=== PATIENT | male | born 1980 | race Caucasian/White ===

== ENCOUNTER 2017-07-25 16:29 | Emergency (ER) | payer SELFPAY ==
[~2017-07-25] VITALS: Ht 185.4 cm; Wt 108.6 kg
[~2017-07-25 16:29] MED LIST: NOHOMEMEDS
[2017-07-25] MEDS ORDERED: CLEOCIN300 MG PO (18:06)
[2017-07-25] MEDS ORDERED: ULTRACET1 TABLET PO (18:06)
[2017-07-25 18:35] VITALS: BP 156/89
== END 2017-07-25 18:35 | disposition home or self-care (01) ==
LOC: EME 16:29
DX: K08.89 Other specified disorders of teeth and supporting structures (principal); K03.81 Cracked tooth; R22.0 Localized swelling, mass and lump, head; F17.200 Nicotine dependence, unspecified, uncomplicated; Z88.0 Allergy status to penicillin
CPT/HCPCS: 99281; 99284

== ENCOUNTER 2018-03-06 09:08 | Inpatient (IN) | payer SELFPAY ==
[~2018-03-06] VITALS: Ht 190.5 cm; Wt 111.3 kg
[~2018-03-06 09:08] MED LIST changes: +CLEOCIN300 MG PO; +ULTRACET1 TABLET PO
[2018-03-06 09:39] LABS: HEMATOCRIT 42.7 % (38.0-50.0); HEMOGLOBIN 13.7 G/DL (12.5-16.6); MCH 30.9 PG (29.0-34.0); MCHC 32.1 G/DL (30.0-36.0); MCV 96.2 FL (86-99); NRBC (%) 0.1 /100 WBC (0-0); PLATELET COUNT 312 K/uL (156-360); RBC DIS.WIDTH-CV 13.8 % (11.8-14.6); RBC DIS.WIDTH-SD 48.8 % (39-53); RED BLOOD COUNT 4.44 M/uL (4.00-5.50); WHITE BLOOD COUNT 24.4 K/uL (4.1-10.2)
[2018-03-06 09:50] LABS: AMYLASE 112 IU/L (1-118); CHLORIDE 102 mEq/L (99-109); POTASSIUM 5.5 mEq/L (3.7-5.4); SODIUM 137 mEq/L (136-147)
[2018-03-06 09:55] LABS: CREATININE 2.6 mg/dL (0.6-1.3); GFR ESTIMATE (CALCULATED) 30 mL/min/ (58.99-99999); SERUM ETHYL ALCOHOL < 10 mg/dL
[2018-03-06 09:56] LABS: UREA NITROGEN (BUN) 19 mg/dL (9-23)
[2018-03-06 09:59] LABS: LIPASE 117 U/L (1.0-51.0); TROP-I INTERPRETATION NEGATIVE; TROPONIN-I 0.05 ng/mL (0.0-0.30)
[2018-03-06 10:08] LABS: COMMENTS - BLOOD GASES A+C+; DEVICE VENT; FI02 100 %; MECHANICAL RATE 16 resp/min; MODE AC; SITE RR; TOTAL RESP RATE 16 resp/min
[2018-03-06 10:09] LABS: CARBOXY HGB 5.3 % (0-5); METHEMOGLOBIN 0.5 % (0-1.5); PCO2 87 mm Hg (35-45); PEEP 5 CM/H20; PO2 135 mm Hg (80-100); TIDAL VOLUME 500 ML; pH 6.91 (7.35-7.45)
[2018-03-06 10:14] LABS: APPEARANCE CLEAR ((CLEAR)); BILIRUBIN NEGATIVE; BLOOD NEGATIVE; COLOR YELLOW ((YELLOW)); GLUCOSE (STRIP) >=500; KETONES NEGATIVE; LEUKOCYTES NEGATIVE; NITRITE NEGATIVE; PROTEIN (STRIP) 30; SPECIFIC GRAVITY 1.017 (1.000-1.030); UCUL ADDED? NO; UROBILINOGEN 0.2 MG/DL (0.2-1.0)
[2018-03-06 10:17] LABS: GLUCOSE 519 mg/dL (70-99)
[2018-03-06 10:19] LABS: INTER. NORMALIZED RATIO 1.1
[2018-03-06 10:22] LABS: PTT 33.5 SEC (25-37)
[2018-03-06 10:31] LABS: AMPHETAMINE NEGATIVE (500 ng/mL); BARBITURATES NEGATIVE (200 ng/mL); BENZODIAZEPINES NEGATIVE (150 ng/mL); BUPRENORPHINE NEGATIVE (10 ng/mL); COCAINE NEGATIVE (150 ng/mL); METHADONE NEGATIVE (200 ng/mL); METHAMPHETAMINE NEGATIVE (500 ng/mL); OPIATES (MORPHINE) NEGATIVE (100 ng/mL); OXYCODONE NEGATIVE (100 ng/mL); PHENCYCLIDINE NEGATIVE (25 ng/mL); PROPOXYPHENE NEGATIVE (300 ng/mL); THC CANNABINOIDS NEGATIVE (50 ng/mL); TRICYCLIC ANTIDEPRESSANTS NEGATIVE (300 ng/mL)
[2018-03-06 10:41] LABS: ABS NEUTROPHIL COUNT 16.9; BAND NEUTROPHILS 2.7 % (0-8.0); BASOPHILS 0.9 %; EOSINOPHIL ABS CT 0; LYMPHOCYTES 19.1 % (15.0-45.0); METAMYELOCYTES 0.9 %; MONOCYTES 8.2 % (0-9.0); MYELOCYTES 1.8 %; PLAT.SUFFICIENCY ADEQUATE; SEG.NEUTROPHILS 66.4 % (46.0-76.0)
[2018-03-06 14:02] VITALS: BP 113/72
[2018-03-06 15:01] VITALS: BP 107/69
[2018-03-06 16:02] VITALS: BP 138/98
[2018-03-06 16:12] LABS: SITE A LINE
[2018-03-06 16:13] LABS: DEVICE VENT; FI02 80 %; MECHANICAL RATE 22 resp/min; MODE AC; PEEP 5 CM/H20; TIDAL VOLUME 500 ML; TOTAL RESP RATE 22 resp/min
[2018-03-06 16:14] LABS: pH 7.27 (7.35-7.45)
[2018-03-06 16:15] LABS: BASE EXCESS -3.8 mEq/L (-3 to +3); BICARBONATE 25.5 mEq/L (22-26); CARBOXY HGB 1.9 % (0-5); METHEMOGLOBIN 0.7 % (0-1.5); O2 SATURATION (CALCULATED) 99.1 % (95-99); PCO2 52 mm Hg (35-45); PO2 266 mm Hg (80-100)
[2018-03-06 16:48] LABS: CHLORIDE 110 MEQ/L (99-109); PHOSPHORUS 3.9 mg/dL (2.5-4.9); POTASSIUM 5.2 MEQ/L (3.7-5.4); UREA NITROGEN (BUN) 20 mg/dL (9-23)
[2018-03-06 16:49] LABS: TOTAL PROTEIN 6.8 g/dL (6.4-8.3)
[2018-03-06 16:51] LABS: TOTAL BILIRUBIN 0.4 mg/dL (0.0-1.0)
[2018-03-06 16:52] LABS: ALKALINE PHOSPHATASE 102 IU/L (3-129)
[2018-03-06 16:54] LABS: CREATININE 1.5 MG/DL (0.6-1.3); GFR ESTIMATE (CALCULATED) 57 mL/min/ (58.99-99999); GLUCOSE 131 mg/dL (70-99); SODIUM 144 MEQ/L (136-147)
[2018-03-06 16:55] LABS: ALT (GPT) 146 IU/L (3-49); AST (GOT) 107 IU/L (2-34); DIRECT BILIRUBIN 0.2 mg/dL (0.0-0.3)
[2018-03-06 17:02] VITALS: BP 93/65
[2018-03-06 17:26] LABS: DEVICE VENT; FI02 50 %; MECHANICAL RATE 21 resp/min; MODE A/C; PCO2 45 mm Hg (35-45); PEEP 5 CM/H20; PO2 105 mm Hg (80-100); SITE A LINE; TIDAL VOLUME 600 ML; TOTAL RESP RATE 21 resp/min; pH 7.31 (7.35-7.45)
[2018-03-06 17:27] LABS: BASE EXCESS -3.8 mEq/L (-3 to +3); BICARBONATE 24.1 mEq/L (22-26); CARBOXY HGB 1.9 % (0-5); METHEMOGLOBIN 0.7 % (0-1.5); O2 SATURATION (CALCULATED) 98.3 % (95-99)
[2018-03-06 18:03] VITALS: BP 100/46
[2018-03-06 18:18] LABS: CHLORIDE 112 MEQ/L (99-109); MAGNESIUM 1.9 mg/dl (1.3-2.7); POTASSIUM 5.6 MEQ/L (3.7-5.4); SODIUM 146 MEQ/L (136-147)
[2018-03-06 18:23] LABS: CREATININE 1.5 MG/DL (0.6-1.3); GFR ESTIMATE (CALCULATED) 57 mL/min/ (58.99-99999); GLUCOSE 138 mg/dL (70-99); UREA NITROGEN (BUN) 21 mg/dL (9-23)
[2018-03-06 18:24] LABS: INTER. NORMALIZED RATIO 1.1; PHOSPHORUS 2.5 mg/dL (2.5-4.9)
[2018-03-06 18:43] LABS: TROP-I INTERPRETATION POSITIVE; TROPONIN-I 1.17 ng/mL (0.0-0.30)
[2018-03-06 18:54] LABS: UR CREATININE CONCENTRATION 15.8 MG/DL
[2018-03-06 18:55] LABS: BASOPHIL (%) 0.4 % (0-1); BASOPHIL COUNT 0.1 K/uL (0-0.1); EOSINOPHIL (%) 0 % (0-5); HEMATOCRIT 44.4 % (38.0-50.0); HEMOGLOBIN 15.5 G/DL (12.5-16.6); IMMATURE GRANULOCYTE (%) 1.6 % (0.0-0.7); LYMPHOCYTE (%) 5.7 % (15-42); LYMPHOCYTE COUNT 1.2 K/uL (1.0-2.8); MCH 30.3 PG (29.0-34.0); MCHC 34.9 G/DL (30.0-36.0); MONOCYTE (%) 8.1 % (3-12); MONOCYTE COUNT 1.7 K/uL (0-0.8); NEUTROPHIL (%) 84.2 % (45-76); NEUTROPHIL COUNT 17.7 K/uL (1.8-6.4); PLATELET COUNT 291 K/uL (156-360); RBC DIS.WIDTH-CV 13.5 % (11.8-14.6); RBC DIS.WIDTH-SD 42.4 % (39-53); RED BLOOD COUNT 5.12 M/uL (4.00-5.50)
[2018-03-06 18:56] LABS: MCV 86.7 FL (86-99)
[2018-03-06 20:04] LABS: ALBUMIN 4.3 G/DL (3.2-4.8); ALKALINE PHOSPHATASE 87 IU/L (3-129); ALT (GPT) 162 IU/L (3-49); AST (GOT) 131 IU/L (2-34); DIRECT BILIRUBIN 0.1 mg/dL (0.0-0.3); TOTAL BILIRUBIN 0.5 MG/DL (0.0-1.0); TOTAL PROTEIN 7.1 G/DL (6.4-8.3)
[2018-03-06 20:26] LABS: CHLORIDE 114 MEQ/L (99-109); CREATININE 1.5 MG/DL (0.6-1.3); GFR ESTIMATE (CALCULATED) 57 mL/min/ (58.99-99999); GLUCOSE 145 mg/dL (70-99); PHOSPHORUS 2.4 mg/dL (2.5-4.9); POTASSIUM 5.6 MEQ/L (3.7-5.4); SODIUM 146 MEQ/L (136-147); UREA NITROGEN (BUN) 21 mg/dL (9-23)
[2018-03-07] VITALS (13 sets, daily range): BP systolic 78–111; BP diastolic 52–71
[2018-03-07 00:21] LABS: BASOPHIL (%) 0.5 % (0-1); BASOPHIL COUNT 0.1 K/uL (0-0.1); EOSINOPHIL (%) 0.1 % (0-5); HEMATOCRIT 45.3 % (38.0-50.0); HEMOGLOBIN 16.1 G/DL (12.5-16.6); IMMATURE GRANULOCYTE (%) 0.9 % (0.0-0.7); LYMPHOCYTE (%) 7.7 % (15-42); LYMPHOCYTE COUNT 1.5 K/uL (1.0-2.8); MCH 30.8 PG (29.0-34.0); MCHC 35.5 G/DL (30.0-36.0); MCV 86.6 FL (86-99); MONOCYTE (%) 7.5 % (3-12); MONOCYTE COUNT 1.5 K/uL (0-0.8); NEUTROPHIL (%) 83.3 % (45-76); NEUTROPHIL COUNT 16.2 K/uL (1.8-6.4); PLATELET COUNT 280 K/uL (156-360); RBC DIS.WIDTH-CV 13.7 % (11.8-14.6); RBC DIS.WIDTH-SD 42.3 % (39-53); RED BLOOD COUNT 5.23 M/uL (4.00-5.50); WHITE BLOOD COUNT 19.4 K/uL (4.1-10.2)
[2018-03-07 00:27] LABS: INTER. NORMALIZED RATIO 1.2
[2018-03-07 00:40] LABS: POTASSIUM 5.6 mEq/L (3.7-5.4); SODIUM 153 mEq/L (136-147)
[2018-03-07 00:41] LABS: MAGNESIUM 2.2 mg/dL (1.3-2.7); TROP-I INTERPRETATION POSITIVE
[2018-03-07 00:42] LABS: GLUCOSE 154 mg/dL (70-99)
[2018-03-07 00:46] LABS: CREATININE 1.5 mg/dL (0.6-1.3); GFR ESTIMATE (CALCULATED) 57 mL/min/ (58.99-99999)
[2018-03-07 00:47] LABS: UREA NITROGEN (BUN) 22 mg/dL (9-23)
[2018-03-07 00:51] LABS: CHLORIDE 120 mEq/L (99-109); PHOSPHORUS 1.3 mg/dL (2.5-4.9); TROPONIN-I 1.45 ng/mL (0.0-0.30)
[2018-03-07 05:51] LABS: SITE ALINE
[2018-03-07 05:52] LABS: COMMENTS - BLOOD GASES C+; DEVICE VENT; FI02 50 %; MECHANICAL RATE 21 resp/min; MODE AC; PCO2 41 mm Hg (35-45); PEEP 5 CM/H20; TIDAL VOLUME 600 ML; TOTAL RESP RATE 21 resp/min; pH 7.35 (7.35-7.45)
[2018-03-07 05:53] LABS: BASE EXCESS -2.9 mEq/L (-3 to +3); BICARBONATE 22.6 mEq/L (22-26); CARBOXY HGB 1.5 % (0-5); METHEMOGLOBIN 0.9 % (0-1.5); O2 SATURATION (CALCULATED) 97.1 % (95-99); PO2 85 mm Hg (80-100)
[2018-03-07 06:22] LABS: BASOPHIL (%) 0.4 % (0-1); BASOPHIL COUNT 0.1 K/uL (0-0.1); EOSINOPHIL (%) 0.2 % (0-5); HEMATOCRIT 45.9 % (38.0-50.0); HEMOGLOBIN 15.9 G/DL (12.5-16.6); IMMATURE GRANULOCYTE (%) 0.8 % (0.0-0.7); LYMPHOCYTE (%) 8.2 % (15-42); LYMPHOCYTE COUNT 1.3 K/uL (1.0-2.8); MCH 30.1 PG (29.0-34.0); MCHC 34.6 G/DL (30.0-36.0); MCV 86.9 FL (86-99); MONOCYTE (%) 6.4 % (3-12); NEUTROPHIL COUNT 13.5 K/uL (1.8-6.4); PLATELET COUNT 274 K/uL (156-360); RBC DIS.WIDTH-CV 13.8 % (11.8-14.6); RBC DIS.WIDTH-SD 43.2 % (39-53); RED BLOOD COUNT 5.28 M/uL (4.00-5.50); WHITE BLOOD COUNT 16.1 K/uL (4.1-10.2)
[2018-03-07 06:41] LABS: INTER. NORMALIZED RATIO 1.1
[2018-03-07 06:44] LABS: CHLORIDE 122 MEQ/L (99-109); CREATININE 1.4 MG/DL (0.6-1.3); GFR ESTIMATE (CALCULATED) > 59 mL/min/ (58.99-99999); GLUCOSE 145 mg/dL (70-99); SODIUM 153 MEQ/L (136-147); UREA NITROGEN (BUN) 23 mg/dL (9-23)
[2018-03-07 06:45] LABS: PHOSPHORUS 1.3 mg/dL (2.5-4.9); POTASSIUM 4.4 MEQ/L (3.7-5.4)
[2018-03-07 06:54] LABS: TROP-I INTERPRETATION POSITIVE; TROPONIN-I 1.83 ng/mL (0.0-0.30)
[2018-03-07 12:36] LABS: BASOPHIL (%) 0.5 % (0-1); BASOPHIL COUNT 0.1 K/uL (0-0.1); EOSINOPHIL (%) 0.6 % (0-5); EOSINOPHIL COUNT 0.1 K/uL (0-0.3); HEMATOCRIT 45.2 % (38.0-50.0); HEMOGLOBIN 15.7 G/DL (12.5-16.6); IMMATURE GRANULOCYTE (%) 0.5 % (0.0-0.7); LYMPHOCYTE (%) 6.9 % (15-42); MCH 30.7 PG (29.0-34.0); MCHC 34.7 G/DL (30.0-36.0); MCV 88.3 FL (86-99); MONOCYTE (%) 6.9 % (3-12); NEUTROPHIL (%) 84.6 % (45-76); NEUTROPHIL COUNT 11.7 K/uL (1.8-6.4); PLATELET COUNT 247 K/uL (156-360); RBC DIS.WIDTH-CV 14.3 % (11.8-14.6); RBC DIS.WIDTH-SD 45.2 % (39-53); RED BLOOD COUNT 5.12 M/uL (4.00-5.50); WHITE BLOOD COUNT 13.8 K/uL (4.1-10.2)
[2018-03-07 12:44] LABS: INTER. NORMALIZED RATIO 1.2
[2018-03-07 12:56] LABS: TROPONIN-I 1.29 ng/mL (0.0-0.30)
[2018-03-07 12:58] LABS: TROP-I INTERPRETATION POSITIVE
[2018-03-07 13:00] LABS: CHLORIDE 124 MEQ/L (99-109); CREATININE 1.4 MG/DL (0.6-1.3); GFR ESTIMATE (CALCULATED) > 59 mL/min/ (58.99-99999); GLUCOSE 132 mg/dL (70-99); SODIUM 154 MEQ/L (136-147); UREA NITROGEN (BUN) 26 mg/dL (9-23)
[2018-03-07 13:01] LABS: PHOSPHORUS < 1.0 mg/dL (2.5-4.9); POTASSIUM 3.2 MEQ/L (3.7-5.4)
[2018-03-07 17:02] LABS: COMMENTS - BLOOD GASES C+; DEVICE 840; FI02 50 %; MECHANICAL RATE 21 resp/min; MODE AC; O2 SATURATION (CALCULATED) 93.8 % (95-99); PCO2 45 mm Hg (35-45); PEEP 5 CM/H20; PO2 66 mm Hg (80-100); SITE ALINE; TIDAL VOLUME 600 ML; TOTAL RESP RATE 21 resp/min; pH 7.27 (7.35-7.45)
[2018-03-07 17:03] LABS: BASE EXCESS -6.2 mEq/L (-3 to +3); BICARBONATE 20.7 mEq/L (22-26); CARBOXY HGB 1.7 % (0-5); METHEMOGLOBIN 0.4 % (0-1.5)
[2018-03-07 18:04] LABS: COMMENTS - BLOOD GASES C+; DEVICE 840; FI02 50 %; MECHANICAL RATE 15 resp/min; MODE AC; O2 SATURATION (CALCULATED) 95.9 % (95-99); PCO2 45 mm Hg (35-45); PEEP 5 CM/H20; PO2 78 mm Hg (80-100); SITE ALINE; TIDAL VOLUME 730 ML; TOTAL RESP RATE 15 resp/min; pH 7.26 (7.35-7.45)
[2018-03-07 18:05] LABS: BASE EXCESS -6.8 mEq/L (-3 to +3); BICARBONATE 20.2 mEq/L (22-26); CARBOXY HGB 1.5 % (0-5); METHEMOGLOBIN 0.6 % (0-1.5)
[2018-03-07 18:32] LABS: COMMENTS - BLOOD GASES C+; DEVICE 840; FI02 50 %; MECHANICAL RATE 15 resp/min; MODE AC; O2 SATURATION (CALCULATED) 97.9 % (95-99); PCO2 45 mm Hg (35-45); PEEP 10 CM/H20; PO2 75 mm Hg (80-100); SITE ALINE; TIDAL VOLUME 730 ML; TOTAL RESP RATE 15 resp/min; pH 7.25 (7.35-7.45)
[2018-03-07 18:33] LABS: BASE EXCESS -7.4 mEq/L (-3 to +3); BICARBONATE 19.7 mEq/L (22-26); METHEMOGLOBIN 0.2 % (0-1.5)
[2018-03-07 18:47] LABS: HEMATOCRIT 43.7 % (38.0-50.0); HEMOGLOBIN 15.2 G/DL (12.5-16.6); MCHC 34.8 G/DL (30.0-36.0); PLATELET COUNT 220 K/uL (156-360); RBC DIS.WIDTH-CV 14.6 % (11.8-14.6); RBC DIS.WIDTH-SD 46.8 % (39-53); RED BLOOD COUNT 4.91 M/uL (4.00-5.50); WHITE BLOOD COUNT 12.9 K/uL (4.1-10.2)
[2018-03-07 18:53] LABS: INTER. NORMALIZED RATIO 1.3
[2018-03-07 19:06] LABS: CHLORIDE 125 MEQ/L (99-109); CREATININE 1.5 MG/DL (0.6-1.3); GFR ESTIMATE (CALCULATED) 57 mL/min/ (58.99-99999); GLUCOSE 110 mg/dL (70-99); MAGNESIUM 1.7 mg/dl (1.3-2.7); SODIUM 157 MEQ/L (136-147); UREA NITROGEN (BUN) 27 mg/dL (9-23)
[2018-03-07 19:11] LABS: PHOSPHORUS 1.7 mg/dL (2.5-4.9); POTASSIUM 2.4 MEQ/L (3.7-5.4)
[2018-03-07 19:16] LABS: TROP-I INTERPRETATION POSITIVE
[2018-03-07 19:22] LABS: COMMENTS - BLOOD GASES C+; DEVICE VENT; FI02 50 %; MECHANICAL RATE 15 resp/min; MODE AC; SITE ALINE; TOTAL RESP RATE 15 resp/min
[2018-03-07 19:23] LABS: CARBOXY HGB 1.4 % (0-5); O2 SATURATION (CALCULATED) 95.1 % (95-99); PCO2 49 mm Hg (35-45); PEEP 15 CM/H20; PO2 73 mm Hg (80-100); TIDAL VOLUME 730 ML; pH 7.23 (7.35-7.45)
[2018-03-07 19:24] LABS: BASE EXCESS -7.3 mEq/L (-3 to +3); BICARBONATE 20.5 mEq/L (22-26); METHEMOGLOBIN 0.7 % (0-1.5)
[2018-03-07 19:36] LABS: ABS NEUTROPHIL COUNT 11.1; ATYPICAL LYMPHOCYTE 2.6 %; EOSINOPHIL ABS CT 0.2; EOSINOPHILS 1.7 % (0-5.0); METAMYELOCYTES 1.7 %; MONOCYTES 0.9 % (0-9.0); PLAT.SUFFICIENCY ADEQUATE; SEG.NEUTROPHILS 46.1 % (46.0-76.0); SPHEROCYTES 1+
[2018-03-08] VITALS (28 sets, daily range): BP systolic 101–146; BP diastolic 53–80
[2018-03-08 00:28] LABS: HEMATOCRIT 39.9 % (38.0-50.0); HEMOGLOBIN 13.8 G/DL (12.5-16.6); MCH 30.7 PG (29.0-34.0); MCHC 34.6 G/DL (30.0-36.0); MCV 88.9 FL (86-99); PLATELET COUNT 176 K/uL (156-360); RBC DIS.WIDTH-CV 14.6 % (11.8-14.6); RBC DIS.WIDTH-SD 46.1 % (39-53); RED BLOOD COUNT 4.49 M/uL (4.00-5.50)
[2018-03-08 00:35] LABS: INTER. NORMALIZED RATIO 1.4
[2018-03-08 00:43] LABS: CHLORIDE 123 mEq/L (99-109); SODIUM 151 mEq/L (136-147)
[2018-03-08 00:45] LABS: GLUCOSE 115 mg/dL (70-99)
[2018-03-08 00:49] LABS: CREATININE 1.6 mg/dL (0.6-1.3); GFR ESTIMATE (CALCULATED) 53 mL/min/ (58.99-99999)
[2018-03-08 00:50] LABS: UREA NITROGEN (BUN) 27 mg/dL (9-23)
[2018-03-08 00:58] LABS: MAGNESIUM 1.8 mg/dL (1.3-2.7); PHOSPHORUS 2.3 mg/dL (2.5-4.9); POTASSIUM 2.9 mEq/L (3.7-5.4)
[2018-03-08 00:59] LABS: TROP-I INTERPRETATION POSITIVE
[2018-03-08 01:00] LABS: TROPONIN-I 1.38 ng/mL (0.0-0.30)
[2018-03-08 02:35] LABS: ABS NEUTROPHIL COUNT 11.6; BASOPHILS 1.7 %; EOSINOPHIL ABS CT 0.1; EOSINOPHILS 0.9 % (0-5.0); LYMPHOCYTES 6.1 % (15.0-45.0); MONOCYTES 1.7 % (0-9.0); PLAT.SUFFICIENCY ADEQUATE
[2018-03-08 06:16] LABS: HEMATOCRIT 39.1 % (38.0-50.0); HEMOGLOBIN 13.2 G/DL (12.5-16.6); MCH 30.1 PG (29.0-34.0); MCHC 33.8 G/DL (30.0-36.0); MCV 89.1 FL (86-99); PLATELET COUNT 193 K/uL (156-360); RBC DIS.WIDTH-CV 14.9 % (11.8-14.6); RED BLOOD COUNT 4.39 M/uL (4.00-5.50); WHITE BLOOD COUNT 14.4 K/uL (4.1-10.2)
[2018-03-08 06:24] LABS: INTER. NORMALIZED RATIO 1.5
[2018-03-08 06:46] LABS: CHLORIDE 120 MEQ/L (99-109); CREATININE 1.6 MG/DL (0.6-1.3); GFR ESTIMATE (CALCULATED) 53 mL/min/ (58.99-99999); GLUCOSE 110 mg/dL (70-99); SODIUM 152 MEQ/L (136-147); UREA NITROGEN (BUN) 25 mg/dL (9-23)
[2018-03-08 06:47] LABS: MAGNESIUM 1.4 mg/dl (1.3-2.7); PHOSPHORUS 3.8 mg/dL (2.5-4.9); POTASSIUM 4.9 MEQ/L (3.7-5.4)
[2018-03-08 06:49] LABS: ANISOCYTOSIS 1+; BAND NEUTROPHILS 30.2 % (0-8.0); BASOPHILS 0.9 %; EOSINOPHILS 0.8 % (0-5.0); LYMPHOCYTES 7.7 % (15.0-45.0); METAMYELOCYTES 0.9 %; MICROCYTOSIS 1+; MONOCYTES 0.9 % (0-9.0); SEG.NEUTROPHILS 58.6 % (46.0-76.0)
[2018-03-08 06:50] LABS: ABS NEUTROPHIL COUNT 12.8; EOSINOPHIL ABS CT 0.1
[2018-03-08 07:19] LABS: BASE EXCESS -2.5 mEq/L (-3 to +3); BICARBONATE 24.2 mEq/L (22-26); CARBOXY HGB 1.1 % (0-5); COMMENTS - BLOOD GASES C+; DEVICE 840; FI02 50 %; MECHANICAL RATE 15 resp/min; METHEMOGLOBIN 1.1 % (0-1.5); MODE AC; PCO2 48 mm Hg (35-45); PEEP 15 CM/H20; PO2 109 mm Hg (80-100); SITE ALINE; TIDAL VOLUME 670 ML; TOTAL RESP RATE 15 resp/min; pH 7.31 (7.35-7.45)
[2018-03-08 07:33] LABS: TROP-I INTERPRETATION POSITIVE; TROPONIN-I 1.44 ng/mL (0.0-0.30)
[2018-03-08 13:12] LABS: HEMATOCRIT 36.8 % (38.0-50.0); HEMOGLOBIN 12.5 G/DL (12.5-16.6); MCH 30.7 PG (29.0-34.0); MCV 90.4 FL (86-99); NRBC (%) 0.2 /100 WBC (0-0); PLATELET COUNT 168 K/uL (156-360); RBC DIS.WIDTH-CV 15.4 % (11.8-14.6); RBC DIS.WIDTH-SD 49.9 % (39-53); RED BLOOD COUNT 4.07 M/uL (4.00-5.50); WHITE BLOOD COUNT 13.1 K/uL (4.1-10.2)
[2018-03-08 13:18] LABS: INTER. NORMALIZED RATIO 1.7
[2018-03-08 13:39] LABS: CHLORIDE 120 MEQ/L (99-109); CREATININE 1.6 MG/DL (0.6-1.3); GFR ESTIMATE (CALCULATED) 53 mL/min/ (58.99-99999); GLUCOSE 105 mg/dL (70-99); MAGNESIUM 1.8 mg/dl (1.3-2.7); PHOSPHORUS 3.6 mg/dL (2.5-4.9); POTASSIUM 4.1 MEQ/L (3.7-5.4); SODIUM 152 MEQ/L (136-147); UREA NITROGEN (BUN) 22 mg/dL (9-23)
[2018-03-08 13:50] LABS: TROP-I INTERPRETATION POSITIVE
[2018-03-08 14:14] LABS: ANISOCYTOSIS 1+; ATYPICAL LYMPHOCYTE 0.9 %; BAND NEUTROPHILS 24.3 % (0-8.0); EOSINOPHIL ABS CT 0.1; EOSINOPHILS 0.9 % (0-5.0); MICROCYTOSIS 1+; MONOCYTES 0.9 % (0-9.0); PLAT.SUFFICIENCY ADEQUATE
[2018-03-08 14:33] LABS: CHLORIDE 120 MEQ/L (99-109); CREATININE 1.5 MG/DL (0.6-1.3); GFR ESTIMATE (CALCULATED) 57 mL/min/ (58.99-99999); GLUCOSE 111 mg/dL (70-99); POTASSIUM 4.2 MEQ/L (3.7-5.4); SODIUM 151 MEQ/L (136-147); UREA NITROGEN (BUN) 22 mg/dL (9-23)
[2018-03-09] VITALS (13 sets, daily range): BP systolic 122–159; BP diastolic 71–94
[2018-03-09 11:40] LABS: PCO2 55 mm Hg (35-45); PO2 143 mm Hg (80-100); pH 7.29 (7.35-7.45)
[2018-03-09 11:41] LABS: BASE EXCESS -0.9 mEq/L (-3 to +3); BICARBONATE 26.4 mEq/L (22-26); CARBOXY HGB 1.5 % (0-5); DEVICE 840; FI02 50 %; MECHANICAL RATE 10 resp/min; METHEMOGLOBIN 0.8 % (0-1.5); MODE AC; PEEP 15 CM/H20; SITE ALINE; TIDAL VOLUME 670 ML; TOTAL RESP RATE 10 resp/min
[2018-03-09 12:01] LABS: COMMENTS - BLOOD GASES C+; DEVICE VENT; SITE ALINE
[2018-03-09 12:01] LABS: HEMATOCRIT 34.1 % (38.0-50.0); HEMOGLOBIN 11.4 G/DL (12.5-16.6); MCH 30.6 PG (29.0-34.0); MCHC 33.4 G/DL (30.0-36.0); MCV 91.7 FL (86-99); PLATELET COUNT 148 K/uL (156-360); RBC DIS.WIDTH-CV 15.1 % (11.8-14.6); RED BLOOD COUNT 3.72 M/uL (4.00-5.50); WHITE BLOOD COUNT 11.6 K/uL (4.1-10.2)
[2018-03-09 12:02] LABS: FI02 50 %; MECHANICAL RATE 16 resp/min; MODE AC; PCO2 46 mm Hg (35-45); PEEP 15 CM/H20; PO2 142 mm Hg (80-100); TIDAL VOLUME 670 ML; TOTAL RESP RATE 16 resp/min; pH 7.35 (7.35-7.45)
[2018-03-09 12:03] LABS: BASE EXCESS -0.5 mEq/L (-3 to +3); BICARBONATE 25.4 mEq/L (22-26); CARBOXY HGB 1.4 % (0-5); METHEMOGLOBIN 0.8 % (0-1.5)
[2018-03-09 12:41] LABS: ABS NEUTROPHIL COUNT 9.8; ANISOCYTOSIS 1+; BAND NEUTROPHILS 17.4 % (0-8.0); BASOPHILS 1.7 %; EOSINOPHIL ABS CT 0.4; EOSINOPHILS 3.5 % (0-5.0); LYMPHOCYTES 8.7 % (15.0-45.0); MICROCYTOSIS 1+; MONOCYTES 1.7 % (0-9.0); PLAT.SUFFICIENCY DECREASED
[2018-03-09 13:23] LABS: CREATINE KINASE 371 IU/L (1-294); HIGH-SENS C-REACTIVE PROTEIN > 8.00 MG/DL (0.02-0.20)
[2018-03-09 13:29] LABS: ALBUMIN 2.6 G/DL (3.2-4.8); ALKALINE PHOSPHATASE 71 IU/L (3-129); ALT (GPT) 73 IU/L (3-49); CHLORIDE 114 MEQ/L (99-109); CREATININE 1.3 MG/DL (0.6-1.3); GFR ESTIMATE (CALCULATED) > 59 mL/min/ (58.99-99999); GLUCOSE 110 mg/dL (70-99); MAGNESIUM 1.9 mg/dl (1.3-2.7); PHOSPHORUS 3.8 mg/dL (2.5-4.9); SODIUM 147 MEQ/L (136-147); TOTAL BILIRUBIN 0.6 MG/DL (0.0-1.0); UREA NITROGEN (BUN) 23 mg/dL (9-23)
[2018-03-09 13:33] LABS: AST (GOT) 48 IU/L (2-34)
[2018-03-09 14:02] LABS: COMMENTS - BLOOD GASES A+C+; SITE RR
[2018-03-09 14:03] LABS: BASE EXCESS -0.9 mEq/L (-3 to +3); BICARBONATE 29.1 mEq/L (22-26); CARBOXY HGB 1.6 % (0-5); DEVICE APNEA TESTING/INLINE; FI02 100 %; METHEMOGLOBIN 0.6 % (0-1.5); PCO2 78 mm Hg (35-45); PO2 268 mm Hg (80-100); TOTAL RESP RATE 0 resp/min
[2018-03-09 14:04] LABS: pH 7.18 (7.35-7.45)
== END 2018-03-09 19:55 | DRG 92 ==
LOC: EME 09:08 → 4WEST 12:15 → EDOF 12:15 → ENRESERV 12:18 → 4WEST 13:32
PROVIDERS: Emergency Medicine; Internal Medicine; Internal Medicine Critical Care Medicine
PROC: 02HV33Z Insertion of Infusion Device into Superior Vena Cava, Percutaneous Approach (ICD-10-PCS; principal; 2018-03-06)
DX: G93.1 Anoxic brain damage, not elsewhere classified (principal); E87.2 Acidosis; E87.0 Hyperosmolality and hypernatremia; Z88.0 Allergy status to penicillin; I46.9 Cardiac arrest, cause unspecified; Z87.11 Personal history of peptic ulcer disease; F17.200 Nicotine dependence, unspecified, uncomplicated
CPT/HCPCS: 36600; 36620; 70450; 71045; 71260; 80048; 80048 91; 80053; 80076; 81003; 82010; 82150; 82330; 82436; 82550; 82570; 82803; 82948; 83036; 83605; 83690; 83735; 83930; 83935; 84100; 84133; 84145 90; 84300; 84484; 85025; 85025 91; 85610; 85730; 86141; 86850; 86900; 86901; 87040; 87070; 87077; 87147; 87186; 87205; 87641; 93005; 93306; 94002; 94003; 94760; 95819; 99281; 99285; C1751; G0480; J1644; J1953; J1956; J2060; J3370; J3475; J3480; J7050; J7120